=== PATIENT | male | born 1950 | race African-American/Black ===

== ENCOUNTER 2023-07-19 16:40 | Inpatient (IN) | payer MEDICARE, MEDICAID ==
[~2023-07-19 16:40] MED LIST: Iopamidol-370 76% 500 ML MDV (1 ML CHARGE) ONE
[2023-07-19 19:04] LABS: #Basophils 0.1 thou/uL (0.0-0.2); #Eosinphils 0.4 thou/uL (0.0-0.7); #Monocytes 0.8 thou/uL (0.11-0.59); #Neutrophils 14.4 thou/uL (1.40-6.50); %Basophils 0.3 % (0.0-1.0); %Lymphocytes 7.1 % (21.0-51.0); %Monocytes 4.4 % (0.0-10.0); %Neutrophils 84.4 % (42.0-75.0); Hematocrit 42.4 % (42.0-52.0); Hemoglobin 14.2 g/dL (14.0-18.0); Mean Corpuscular HGB CONC 33.5 g/dL (32.0-36.0); Mean Corpuscular Hemoglobin 31.4 pg (27.0-31.0); Mean Corpuscular Volume 93.8 fl (78.0-98.0); Platelet Count 185 10x3/uL (130-400); RBC Distribution Width 14.3 % (11.5-14.5); Red Blood Cell (RBC) Count 4.52 mill/uL (4.70-6.10); White Blood Cell (WBC) Count 17.1 10x3/uL (4.8-10.8)
[2023-07-19] MEDS ORDERED: Piperacillin/Tazobactam 4.5 GM VIAL ONE (19:28)
[2023-07-19] MEDS ORDERED: Sodium Chloride 0.9% 100 ML ONE (19:29)
[2023-07-19 19:33] LABS: PTT 37.2 sec (22.9-36.1)
[2023-07-19 19:34] LABS: D-Dimer Test 1.6 mcg/mL (0.27-0.43); Prothrombin Time 12.7 sec (12.0-14.7)
[2023-07-19 20:32] LABS: Albumin 3.9 g/dL (3.4-4.8)
[2023-07-19 20:33] LABS: Chloride 107 mmol/L (98-107); Sodium 137 mmol/L (136-145)
[2023-07-19] MEDS ORDERED: Vancomycin 1 GM/200 ML (FROZEN) BAG ONE (20:33)
[2023-07-19 20:34] LABS: Calcium 9.3 mg/dL (7.8-10.44)
[2023-07-19 20:35] LABS: Globulin 3.9 g/dL (2.4-3.5); Glucose 126 mg/dL (83-110); Protein, Total 7.8 g/dL (5.8-8.1)
[2023-07-19 20:36] LABS: Anion Gap 15 mmol/L (10-20); Bilirubin, Total 1.2 mg/dL (0.2-1.2); Carbon Dioxide 19 mmol/L (23-31)
[2023-07-19 20:37] LABS: Alkaline Phosphatase 234 U/L (40-110)
[2023-07-19 20:38] LABS: Calc. Creatinine Clearance 0 mL/min (70-130); Estimated GFR 48
[2023-07-19 20:39] LABS: BUN (Urea Nitrogen) 22 mg/dL (8.4-25.7); CRP (Inflammatory) 21.28 mg/dL (= or < 0.5)
[2023-07-19 20:40] LABS: ALT (SGPT) 79 U/L (8-55); AST (SGOT) 75 U/L (5-34); CK (CPK) 424 U/L (30-200); Magnesium 2.4 mg/dL (1.6-2.6)
[2023-07-19] MEDS ORDERED: Acetaminophen 325 MG TAB PO PRN (21:34)
[2023-07-19] MEDS ORDERED: Ondansetron PF 4 MG/2 ML Vial IVP PRN (21:34)
[2023-07-19] MEDS ORDERED: Ondansetron ODT 4 MG TAB PO PRN (21:34)
[2023-07-19 22:35] LABS: Lactic Acid 2.5 mmol/L (0.5-2.2)
[2023-07-19 22:54] VITALS: BMI 28.9
[2023-07-19] MEDS: Lactated Ringer's 1,000 ML IV SCH (23:30)
[2023-07-19] MEDS: Sodium Chloride 0.9% 500 ML IV SCH (23:56)
[2023-07-19] MEDS: Vancomycin (BATCH) 1.5 GM in Premix 1 BAG IVPB SCH (23:56)
[2023-07-20] MEDS: Cefepime 1 GM in Sodium Chloride 0.9% 100 ML IVPB SCH (03:21)
[2023-07-20 05:28] LABS: #Eosinphils 0.2 thou/uL (0.0-0.7); %Basophils 0.3 % (0.0-1.0); %Lymphocytes 8.2 % (21.0-51.0); %Monocytes 6.1 % (0.0-10.0); %Neutrophils 83.2 % (42.0-75.0); Hematocrit 36.6 % (42.0-52.0); Mean Corpuscular HGB CONC 32.8 g/dL (32.0-36.0); Mean Corpuscular Hemoglobin 31.3 pg (27.0-31.0); Mean Corpuscular Volume 95.3 fl (78.0-98.0); Mean Platelet Volume 11.1 fL (7.4-10.4); Platelet Count 181 10x3/uL (130-400); RBC Distribution Width 14.4 % (11.5-14.5); Red Blood Cell (RBC) Count 3.84 mill/uL (4.70-6.10); White Blood Cell (WBC) Count 15.6 10x3/uL (4.8-10.8)
[2023-07-20 05:49] LABS: Lactic Acid 1.2 mmol/L (0.5-2.2)
[2023-07-20 06:19] LABS: ALT (SGPT) 81 U/L (8-55); AST (SGOT) 91 U/L (5-34); Albumin 3.2 g/dL (3.4-4.8); Alkaline Phosphatase 234 U/L (40-110); Anion Gap 13 mmol/L (10-20); BUN (Urea Nitrogen) 24 mg/dL (8.4-25.7); Bilirubin, Total 0.6 mg/dL (0.2-1.2); Calc. Creatinine Clearance 62 mL/min (70-130); Calcium 8.4 mg/dL (7.8-10.44); Carbon Dioxide 22 mmol/L (23-31); Chloride 109 mmol/L (98-107); Estimated GFR 48; Glucose 80 mg/dL (83-110); Potassium 4.1 mmol/L (3.5-5.1); Protein, Total 7.2 g/dL (5.8-8.1); Sodium 140 mmol/L (136-145)
[2023-07-20] MEDS: Heparin 5,000 UNITS/ML VIAL SC SCH (09:00)
[2023-07-20] MEDS: CEFAZOLIN 2 GM in Sodium Chloride 0.9% 100 ML IVPB SCH (13:55)
[2023-07-20] MEDS ORDERED: Vancomycin (BATCH) 1.75 GM in Premix 1 BAG IVPB SCH (23:59)
[2023-07-21 04:58] LABS: #Eosinphils 0.6 thou/uL (0.0-0.7); #Monocytes 1.1 thou/uL (0.11-0.59); #Neutrophils 10.1 thou/uL (1.40-6.50); %Basophils 0.3 % (0.0-1.0); %Monocytes 8.1 % (0.0-10.0); Hematocrit 36.3 % (42.0-52.0); Hemoglobin 11.7 g/dL (14.0-18.0); Mean Corpuscular HGB CONC 32.2 g/dL (32.0-36.0); Mean Corpuscular Hemoglobin 30.9 pg (27.0-31.0); Mean Corpuscular Volume 95.8 fl (78.0-98.0); Mean Platelet Volume 10.8 fL (7.4-10.4); Platelet Count 208 10x3/uL (130-400); RBC Distribution Width 14.3 % (11.5-14.5); Red Blood Cell (RBC) Count 3.79 mill/uL (4.70-6.10); White Blood Cell (WBC) Count 13.7 10x3/uL (4.8-10.8)
[2023-07-21 05:21] LABS: Anion Gap 11 mmol/L (10-20); BUN (Urea Nitrogen) 14 mg/dL (8.4-25.7); Calc. Creatinine Clearance 77 mL/min (70-130); Calcium 8.7 mg/dL (7.8-10.44); Carbon Dioxide 26 mmol/L (23-31); Chloride 110 mmol/L (98-107); Estimated GFR 62; Glucose 83 mg/dL (83-110); Potassium 3.9 mmol/L (3.5-5.1); Sodium 143 mmol/L (136-145)
[2023-07-21] MEDS ORDERED: Atorvastatin Calcium 20 MG TAB PO SCH (21:00)
[2023-07-22 05:11] LABS: #Basophils 0.1 thou/uL (0.0-0.2); #Eosinphils 0.5 thou/uL (0.0-0.7); #Monocytes 1.1 thou/uL (0.11-0.59); #Neutrophils 8.3 thou/uL (1.40-6.50); %Basophils 0.4 % (0.0-1.0); %Monocytes 8.5 % (0.0-10.0); %Neutrophils 65.5 % (42.0-75.0); Hematocrit 35.8 % (42.0-52.0); Hemoglobin 11.6 g/dL (14.0-18.0); Mean Corpuscular HGB CONC 32.4 g/dL (32.0-36.0); Mean Corpuscular Hemoglobin 30.8 pg (27.0-31.0); Mean Platelet Volume 10.7 fL (7.4-10.4); Platelet Count 227 10x3/uL (130-400); RBC Distribution Width 14.1 % (11.5-14.5); Red Blood Cell (RBC) Count 3.77 mill/uL (4.70-6.10); White Blood Cell (WBC) Count 12.6 10x3/uL (4.8-10.8)
[2023-07-22 05:57] LABS: Anion Gap 11 mmol/L (10-20); BUN (Urea Nitrogen) 13 mg/dL (8.4-25.7); Calc. Creatinine Clearance 81 mL/min (70-130); Calcium 9.3 mg/dL (7.8-10.44); Carbon Dioxide 25 mmol/L (23-31); Chloride 106 mmol/L (98-107); Estimated GFR 67; Glucose 81 mg/dL (83-110); Potassium 3.4 mmol/L (3.5-5.1); Sodium 139 mmol/L (136-145)
[2023-07-22] MEDS: Potassium Bicarbonate/Cit Ac 20 MEQ TAB PO SCH (09:02)
[2023-07-22] MEDS: Aspirin 81 mg Enteric Coated Tablet PO SCH (09:03)
[2023-07-23 06:27] LABS: Hematocrit 38.6 % (42.0-52.0); Hemoglobin 12.7 g/dL (14.0-18.0); Manual Diff?? YES; Mean Corpuscular HGB CONC 32.9 g/dL (32.0-36.0); Mean Corpuscular Hemoglobin 31.3 pg (27.0-31.0); Mean Corpuscular Volume 95.1 fl (78.0-98.0); Mean Platelet Volume 10.3 fL (7.4-10.4); Platelet Count 237 10x3/uL (130-400); Red Blood Cell (RBC) Count 4.06 mill/uL (4.70-6.10); White Blood Cell (WBC) Count 11.2 10x3/uL (4.8-10.8)
[2023-07-23 06:37] LABS: Delete Auto Diff?? YES
[2023-07-23 06:41] LABS: Anion Gap 14 mmol/L (10-20); BUN (Urea Nitrogen) 14 mg/dL (8.4-25.7); Calc. Creatinine Clearance 79 mL/min (70-130); Calcium 9.1 mg/dL (7.8-10.44); Carbon Dioxide 22 mmol/L (23-31); Chloride 107 mmol/L (98-107); Estimated GFR 65; Glucose 86 mg/dL (83-110); Potassium 4.2 mmol/L (3.5-5.1); Sodium 139 mmol/L (136-145)
[2023-07-23 07:14] LABS: Band 1 % (5-11); CellaVision Operator ID LAB.KW3; Eosinophils 3 % (0-10); Lymphocytes 19 % (21-51); Monocytes 9 % (0-10); Neutrophil 67 % (42-75); Platelet Adequacy Comment Platelets Normal; Polychromasia SLIGHT = 2-3 cells HPF (0-2); Reactive Lymphocytes 1 % (0-10); Total Cell Count 100
[2023-07-24 05:38] LABS: Hemoglobin 12.6 g/dL (14.0-18.0); Manual Diff?? YES; Mean Corpuscular HGB CONC 33.2 g/dL (32.0-36.0); Mean Corpuscular Hemoglobin 30.8 pg (27.0-31.0); Mean Corpuscular Volume 92.9 fl (78.0-98.0); Mean Platelet Volume 10.1 fL (7.4-10.4); Platelet Count 268 10x3/uL (130-400); RBC Distribution Width 13.8 % (11.5-14.5); Red Blood Cell (RBC) Count 4.09 mill/uL (4.70-6.10); White Blood Cell (WBC) Count 12.3 10x3/uL (4.8-10.8)
[2023-07-24 05:42] LABS: Delete Auto Diff?? YES
[2023-07-24 06:16] LABS: CellaVision Operator ID lab.abc; Eosinophils 2 % (0-10); Lymphocytes 11 % (21-51); Metamyelocyte 1 % (0-0); Monocytes 5 % (0-10); Neutrophil 79 % (42-75); Platelet Adequacy Comment Platelets Normal; RBC Morphology Within Normal Limits; Reactive Lymphocytes 1 % (0-10); Total Cell Count 101
[2023-07-24 08:23] LABS: BUN (Urea Nitrogen) 18 mg/dL (8.4-25.7); Calc. Creatinine Clearance 71 mL/min (70-130); Calcium 9.3 mg/dL (7.8-10.44); Carbon Dioxide 19 mmol/L (23-31); Estimated GFR 56; Glucose 91 mg/dL (83-110)
[2023-07-24 09:25] LABS: Anion Gap 16 mmol/L (10-20); Chloride 104 mmol/L (98-107); Potassium 3.9 mmol/L (3.5-5.1); Sodium 134 mmol/L (136-145)
[2023-07-24 12:13] VITALS: BP 136/82; TEMP 99.1
== END 2023-07-24 15:15 | DRG 872 ==
LOC: ERS 16:40 → T4-B 21:30 → OBSVTOIN 21:30
PROVIDERS: ADMIT Internal Medicine; ATTEND Internal Medicine
DX: A41.9 Sepsis, unspecified organism (principal); L03.115 Cellulitis of right lower limb; N17.9 Acute kidney failure, unspecified; I70.209 Unspecified atherosclerosis of native arteries of extremities, unspecified extremity; I10 Essential (primary) hypertension; Z79.82 Long term (current) use of aspirin; Z79.899 Other long term (current) drug therapy; Z86.73 Personal history of transient ischemic attack (TIA), and cerebral infarction without residual deficits; Z79.01 Long term (current) use of anticoagulants
CPT/HCPCS: 36415; 71045; 75635; 80048; 80053; 82550; 83605; 83735; 85025; 85379; 85610; 85730; 86140; 87040; 93005; 96365; 96366; 96367; J0692; J1644; J2543; J3370; J3370-JW; J3490; J7030; J7120; Q9967